=== PATIENT | male | born 1980 | race Caucasian/White ===

== ENCOUNTER 2018-08-21 23:50 | Inpatient (IN) | payer BC ==
[~2018-08-21] VITALS: Ht 188 cm; Wt 79.4 kg
[~2018-08-21 23:50] MED LIST: GLIP-116 PO; METF-372 PO
[2018-08-22] MEDS ORDERED: SODIUM CHLORIDE 0.9% 1,000 ML IVB ONE (00:11)
[2018-08-22] MEDS ORDERED: InsuLIN REG 1unit/0.01ml Soln (100units/ml) IV ONE (00:15)
[2018-08-22 00:47] LABS: Basophils # (auto) 0 uL; Basophils % (auto) 0.2 % (0.0-2.0); Eosinophils # (auto) 0 uL; Hematocrit 55.1 % (41.0-53.0); Hemoglobin 18.1 g/dL (13.5-17.5); Lymphocytes # (auto) 0.6 uL; Lymphocytes % (auto) 2.7 % (10.0-50.0); Mean Corpuscular Hemoglobin 33.3 pg (28.0-32.0); Mean Corpuscular Hgb Conc. 32.8 g/dL (32.0-36.0); Mean Corpuscular Volume 101.3 fL (80.0-100.0); Monocytes # (auto) 1.7 uL; Monocytes % (auto) 8.3 % (0.0-12.0); Neutrophils # (auto) 18.5 uL; Neutrophils % (auto) 88.8 % (37.0-80.0); Platelet Count (auto) 416 10^3/uL (140-450); Red Blood Cells 5.44 10^6/uL (4.5-5.90); Red Cell Distribution Width 11.8 % (11.8-14.3); White Blood Cell 20.8 10^3/uL (4.4-10.8)
[2018-08-22 01:07] LABS: Albumin 3.9 g/dL (3.4-5.0); Calcium 8.3 mg/dL (8.5-10.1); Potassium 5.3 mmol/L (3.5-5.1)
[2018-08-22 01:09] LABS: Bilirubin, Total 2.2 mg/dL (0.2-1.0); Total Protein 8.2 g/dL (6.4-8.2)
[2018-08-22 01:12] LABS: BUN/Creatinine Ratio 26.8; Lactic Acid w/Reflex 3.2 mmol/L (0.4-2.0)
[2018-08-22] MEDS ORDERED: InsuLIN R (HUMAN) 100 UNITS in SODIUM CHL 0.9% 99 ML IV SCH ×5 (01:16→15:46)
[2018-08-22] MEDS ORDERED: SODIUM CHLORIDE 0.9% 1,000 ML IV ONE (01:30)
[2018-08-22] MEDS ORDERED: DEXTROSE (50%) 50ML SYRG IV PRN ×3 (01:30→18:00)
[2018-08-22] MEDS ORDERED: InsuLIN REG 1unit/0.01ml Soln (100units/ml) ONE (02:50)
[2018-08-22] MEDS: ACCU-CHEK COMFORT CURVE STRIP VI SCH ×13 (03:27→21:50)
[2018-08-22] MEDS: SODIUM CHLORIDE 0.9% 1,000 ML IV SCH ×6 (03:27→21:52)
[2018-08-22] MEDS ORDERED: ONDANSETRON HCL 4 MG/2 ML VIAL IV ONE (03:30)
[2018-08-22] MEDS ORDERED: VANCOMYCIN PER PHARMACY 0 MG IV SCH (03:30)
[2018-08-22] MEDS ORDERED: HYDROmorphone HCL 2 MG/ML VL IV ONE (03:30)
[2018-08-22] MEDS ORDERED: PANTOPRAZOLE 40 MG/10 ML VIAL IV ONE (03:30)
[2018-08-22] MEDS ORDERED: VANCOMYCIN 1GM/250ML 250 ML IV ONE (04:00)
[2018-08-22] MEDS ORDERED: SODIUM CHLORIDE 0.9% 1,000 ML IV SCH (07:28)
[2018-08-22] MEDS ORDERED: LIDOCAINE 1% HCL (LOCAL ANESTH.) INJ 20ML MDV ONE (07:46)
[2018-08-22] MEDS: cefTRIAXone 1GM/50ML D5W 50 ML IV SCH (08:00)
[2018-08-22] MEDS ORDERED: MORPHINE SULF INJ 2 MG/ML SYRINGE 1ML ONE (09:11)
[2018-08-22] MEDS: MORPHINE SULFATE 4 MG/ML SYR/VIAL IV PRN ×2 (09:19→17:29)
[2018-08-22 15:11] LABS: Basophils # (auto) 0 uL; Basophils % (auto) 0.1 % (0.0-2.0); Eosinophils # (auto) 0 uL; Hematocrit 45.1 % (41.0-53.0); Hemoglobin 15.9 g/dL (13.5-17.5); Lymphocytes # (auto) 0.5 uL; Lymphocytes % (auto) 4.3 % (10.0-50.0); Mean Corpuscular Hgb Conc. 35.2 g/dL (32.0-36.0); Mean Corpuscular Volume 96.5 fL (80.0-100.0); Monocytes % (auto) 9.3 % (0.0-12.0); Neutrophils % (auto) 86.3 % (37.0-80.0); Nucleated Red Blood Cells % 0.2 %; Platelet Count (auto) 274 10^3/uL (140-450); Red Blood Cells 4.68 10^6/uL (4.5-5.90); Red Cell Distribution Width 12.2 % (11.8-14.3); White Blood Cell 10.5 10^3/uL (4.4-10.8)
[2018-08-22 15:43] LABS: BUN/Creatinine Ratio 26.7; Potassium 3.9 mmol/L (3.5-5.1)
[2018-08-22] MEDS ORDERED: INSULIN LANTUS (GLARGINE) 1 /0.01ml (100units/ml) SC ONE (17:30)
[2018-08-22] MEDS: VANCOMYCIN 1GM/250ML 250 ML IV SCH (18:22)
[2018-08-22 20:30] VITALS: BP 153/88
[2018-08-22 21:45] LABS: BUN/Creatinine Ratio 21.6; Calcium 7.4 mg/dL (8.5-10.1); Potassium 3.8 mmol/L (3.5-5.1)
[2018-08-22] MEDS: InsuLIN REG 1unit/0.01ml Soln (100units/ml) SC SCH (21:51)
[2018-08-22] MEDS: INSULIN LANTUS (GLARGINE) 1 /0.01ml (100units/ml) SC SCH (21:51)
[2018-08-23] MEDS: MORPHINE SULFATE 4 MG/ML SYR/VIAL IV PRN (01:02)
[2018-08-23] MEDS: cefTRIAXone 1GM/50ML D5W 50 ML IV SCH (04:38)
[2018-08-23 05:00] VITALS: BP 158/97
[2018-08-23 06:16] LABS: Basophils # (auto) 0 uL; Eosinophils # (auto) 0 uL; Lymphocytes # (auto) 0.5 uL; Mean Corpuscular Hgb Conc. 36.2 g/dL (32.0-36.0); Monocytes # (auto) 0.6 uL; Monocytes % (auto) 7.8 % (0.0-12.0); Neutrophils # (auto) 7.1 uL
[2018-08-23 06:18] LABS: Basophils % (auto) 0.2 % (0.0-2.0); Hematocrit 39.6 % (41.0-53.0); Hemoglobin 14.3 g/dL (13.5-17.5); Lymphocytes % (auto) 6.3 % (10.0-50.0); Mean Corpuscular Hemoglobin 34.3 pg (28.0-32.0); Mean Corpuscular Volume 94.8 fL (80.0-100.0); Neutrophils % (auto) 85.7 % (37.0-80.0); Nucleated Red Blood Cells % 0.1 %; Platelet Count (auto) 211 10^3/uL (140-450); Red Blood Cells 4.18 10^6/uL (4.5-5.90); Red Cell Distribution Width 11.9 % (11.8-14.3); White Blood Cell 8.2 10^3/uL (4.4-10.8)
[2018-08-23] MEDS: ACCU-CHEK COMFORT CURVE STRIP VI SCH ×4 (06:30→21:38)
[2018-08-23] MEDS: VANCOMYCIN 1GM/250ML 250 ML IV SCH (06:30)
[2018-08-23] MEDS: InsuLIN REG 1unit/0.01ml Soln (100units/ml) SC SCH ×4 (06:37→21:39)
[2018-08-23] MEDS: SODIUM CHLORIDE 0.9% 1,000 ML IV SCH ×3 (06:37→21:40)
[2018-08-23 06:47] LABS: Anion Gap 15 (5-15); Blood Urea Nitrogen 12 mg/dL (7-18); Carbon Dioxide 12 mmol/L (21-32); Chloride 108 mmol/L (98-107); GFR African American 184 mL/min; GFR Non-African American 152 mL/min; Glucose 178 mg/dL (74-106); Potassium 3.6 mmol/L (3.5-5.1); Sodium 135 mmol/L (136-145)
[2018-08-23 06:48] LABS: Alanine Aminotransferase 18 U/L (16-61); Albumin 2.9 g/dL (3.4-5.0); Alkaline Phosphatase 97 U/L (45-117); Aspartate Aminotransferase 14 U/L (15-37); Bilirubin, Total 1.1 mg/dL (0.2-1.0); Calcium 8.1 mg/dL (8.5-10.1); Cholesterol 143 mg/dL (< 200); HDL Cholesterol 47 mg/dL (40-59); Total Protein 5.8 g/dL (6.4-8.2); Triglycerides 154 mg/dL (< 150)
[2018-08-23 06:49] LABS: LDL Cholesterol 84 mg/dL (< 100); Magnesium 2.4 mg/dL (1.6-2.6)
[2018-08-23 09:02] VITALS: BP 152/96
[2018-08-23] MEDS ORDERED: INSULIN LANTUS (GLARGINE) 1 /0.01ml (100units/ml) SC ONE (12:30)
[2018-08-23 13:00] VITALS: BP 153/93
[2018-08-23] MEDS: HYDROcodone-ACET 5/325MG TAB PO PRN ×3 (13:21→21:39)
[2018-08-23] MEDS ORDERED: VANCOMYCIN 1GM/250ML 250 ML IV SCH (14:00)
[2018-08-23 17:10] VITALS: BP 129/89
[2018-08-23] MEDS: INSULIN LANTUS (GLARGINE) 1 /0.01ml (100units/ml) SC SCH (21:39)
[2018-08-23 21:57] VITALS: BP 137/83
[2018-08-23 23:22] LABS: Urine Bacteria NONE SEEN /hpf (None Seen); Urine Blood Negative /uL (Negative); Urine Specific Gravity 1.005 (1.001-1.035); Urine WBC 1 /hpf (0 - 3)
[2018-08-24] MEDS: cefTRIAXone 1GM/50ML D5W 50 ML IV SCH (05:13)
[2018-08-24] MEDS: HYDROcodone-ACET 5/325MG TAB PO PRN ×2 (05:13→11:36)
[2018-08-24 05:38] VITALS: BP 149/88
[2018-08-24 06:13] LABS: Albumin 2.8 g/dL (3.4-5.0); Calcium 8.1 mg/dL (8.5-10.1)
[2018-08-24 06:17] LABS: BUN/Creatinine Ratio 13.6; Bilirubin, Total 1.2 mg/dL (0.2-1.0); Total Protein 5.8 g/dL (6.4-8.2)
[2018-08-24] MEDS: ACCU-CHEK COMFORT CURVE STRIP VI SCH ×3 (06:28→17:00)
[2018-08-24] MEDS: InsuLIN REG 1unit/0.01ml Soln (100units/ml) SC SCH ×3 (06:28→17:00)
[2018-08-24 09:00] VITALS: BP 151/92
[2018-08-24] MEDS ORDERED: ENOXAPARIN SOD 40 MG/0.4 ML SYRINGE SC SCH (10:00)
[2018-08-24] MEDS ORDERED: PANTOPRAZOLE 40 MG TAB PO SCH (10:00)
[2018-08-24] MEDS ORDERED: POTASSIUM CHL 20 Meq TABLET PO ONE (11:00)
[2018-08-24] MEDS ORDERED: SODIUM CHLORIDE 0.9% 1,000 ML IV SCH (11:00)
[2018-08-24 13:00] VITALS: BP 150/80
[2018-08-24 17:00] VITALS: BP 151/76
== END 2018-08-24 18:15 | disposition home or self-care (01) | DRG 637 ==
LOC: ER 23:52 → TELE 08-22 03:32 → TELE-CENTR 08-22 20:00
PROVIDERS: ADMIT Nurse Practitioner Family; ATTEND Internal Medicine
DX: E11.10 Type 2 diabetes mellitus with ketoacidosis without coma (principal); N17.0 Acute kidney failure with tubular necrosis; E11.21 Type 2 diabetes mellitus with diabetic nephropathy; D72.829 Elevated white blood cell count, unspecified; R00.0 Tachycardia, unspecified; E87.6 Hypokalemia; N18.9 Chronic kidney disease, unspecified; E11.22 Type 2 diabetes mellitus with diabetic chronic kidney disease; Z79.4 Long term (current) use of insulin
CPT/HCPCS: 36415; 36600; 71045; 80048; 80053; 80061; 80202; 81001; 82010; 82150; 82805; 82962; 83036; 83605; 83690; 83735; 83930; 85025; 87040; 87086; 93005; 94761; 96361; 96365; 96366; 96367; 96368; 99291; A6257; C9113; G0378; J0696; J1815; J2001; J2405

== ENCOUNTER 2019-01-11 10:04 | Inpatient (IN) | payer BC ==
[~2019-01-11] VITALS: Ht 188 cm; Wt 78.3 kg
[2019-01-11 10:48] LABS: Basophils # (auto) 0 uL; Basophils % (auto) 0.1 % (0.0-2.0); Eosinophils # (auto) 0 uL; Hemoglobin 17.5 g/dL (13.5-17.5); Lymphocytes # (auto) 0.6 uL; Lymphocytes % (auto) 4.9 % (10.0-50.0); Mean Corpuscular Hemoglobin 33.8 pg (28.0-32.0); Mean Corpuscular Hgb Conc. 35.7 g/dL (32.0-36.0); Mean Corpuscular Volume 94.6 fL (80.0-100.0); Monocytes # (auto) 0.3 uL; Monocytes % (auto) 2.4 % (0.0-12.0); Neutrophils # (auto) 11.2 uL; Neutrophils % (auto) 92.6 % (37.0-80.0); Nucleated Red Blood Cells % 0.3 %; Platelet Count (auto) 319 10^3/uL (140-450); Red Blood Cells 5.18 10^6/uL (4.5-5.90); Red Cell Distribution Width 12.1 % (11.8-14.3); White Blood Cell 12.1 10^3/uL (4.4-10.8)
[2019-01-11 11:02] LABS: Potassium 3.7 mmol/L (3.5-5.1)
[2019-01-11 11:07] LABS: Albumin 4.5 g/dL (3.4-5.0); BUN/Creatinine Ratio 16.9; Calcium 9.2 mg/dL (8.5-10.1); Total Protein 8.2 g/dL (6.4-8.2)
[2019-01-11 12:27] LABS: Urine Bacteria NONE SEEN /hpf (None Seen); Urine Blood Negative /uL (Negative); Urine Specific Gravity 1.024 (1.001-1.035); Urine WBC <1 /hpf (0 - 3)
[2019-01-11] MEDS ORDERED: SODIUM CHLORIDE 0.9% 1,000 ML IVB ONE (13:01)
[2019-01-11] MEDS ORDERED: SODIUM CHLORIDE 0.9% 1,000 ML IV SCH ×3 (13:01→19:01)
[2019-01-11] MEDS ORDERED: DEXTROSE (50%) 50ML SYRG IV PRN (13:15)
[2019-01-11] MEDS ORDERED: ONDANSETRON HCL 4 MG/2 ML VIAL IV ONE (13:15)
[2019-01-11] MEDS ORDERED: SODIUM CHLORIDE 0.9% 1,000 ML IV ONE (13:15)
[2019-01-11 13:44] LABS: INR 0.91 (0.9-1.15); Partial Thromboplastin Time 23.9 sec (23.78-33.04); Prothrombin Time 9.8 sec (9.27-12.13)
[2019-01-11 13:52] LABS: Magnesium 2.2 mg/dL (1.6-2.6)
[2019-01-11] MEDS: ACCU-CHEK COMFORT CURVE STRIP VI SCH ×7 (14:55→22:37)
[2019-01-11] MEDS: InsuLIN R (HUMAN) 100 UNITS in SODIUM CHL 0.9% 99 ML IV SCH (15:29)
[2019-01-11 15:31] LABS: BUN/Creatinine Ratio 19.6; Calcium 8.7 mg/dL (8.5-10.1); Potassium 4.1 mmol/L (3.5-5.1)
[2019-01-11] MEDS ORDERED: ONDANSETRON HCL 4 MG/2 ML VIAL IV PRN (16:30)
[2019-01-11] MEDS: PROMETHAZINE HCL 25 MG/ML 1ML IV PRN ×2 (16:57→23:31)
[2019-01-11] MEDS: SODIUM CHLORIDE 0.9% 1,000 ML IV SCH ×3 (17:00→22:16)
[2019-01-11] MEDS: SOD CHL 0.45% WITH 20MEQ KCL 1,000 ML IV SCH ×2 (17:22→23:10)
--- NOTE | 2019-01-11 18:25 | NUR ---
Received patient from ER. Patient A&Ox4. Patient on room air. IV right hand 20G running Insulin at 2unit/hr and NS w/K at 150ml/hr, IV patent, clean, dry, and intact. No S/S of SOB or distress noted. Patient on the monitor. Bed in the lowest position, side rails up x2, call light within reach. Admission packet to be done. Report to be given to assistant shift supervisor RN. Will continue to monitor.
[2019-01-11 18:37] VITALS: BP 142/92
[2019-01-11 19:46] LABS: Magnesium 2.2 mg/dL (1.6-2.6); Phosphorus 3.3 mg/dL (2.5-4.90)
--- NOTE | 2019-01-11 20:00 | NUR ---
Opening Shift Note Assumed care of patient. Patient's eyes closed, responded when called. Verbalizes that he is nauseated - propped up in bed, emesis bag with patient, will medicate with Zofran. Full assessment done - refer interventions. Temp 99.2 F, face flushed, does not feel cold/hot. Instructed on POC and to call for assist PRN, will continue to monitor for changes Q1hr and PRN. Addendum: 01/12/19 at 0015 by Lanny Parr RN ongoing IV NS bolus and IV Insulin at 2 units/hr
--- NOTE | 2019-01-11 20:30 | NUR ---
BMP NOT DONE CALLED LAB TO INCLUDE BMP IN THE BLOOD TEST DONE STEF AT 1850HRS LAB STAFF SAID SHE WILL DO IT Addendum: 01/11/19 at 2145 by Lanny Parr RN BMP RESULTS CAME OUT
[2019-01-11 21:33] LABS: BUN/Creatinine Ratio 17.5; Potassium 4.1 mmol/L (3.5-5.1)
[2019-01-11] MEDS: FAMOTIDINE (10MG/ML) 2ML VL IV SCH (21:50)
--- NOTE | 2019-01-11 22:00 | NUR ---
AT BEDSIDE PATIENT'S AT BEDSIDE. UPDATED OF PATIENT'S CONDITION. SHE BROUGHT IN THE IPAD AND PUT IN THE CABINET. Addendum: 01/11/19 at 2306 by Lanny Parr RN confirmed with ,patient's face was always been flushed
--- NOTE | 2019-01-11 22:25 | NUR ---
VOMITED PATIENT VOMITED ABOUT 100MLS ZOFRAN JUST GIVEN AROUND 8PM ADVISED PATIENT TO TAKE ICE CHIPS ONLY WILL GIVEN PHENERGAN IF NEEDED LATER
--- NOTE | 2019-01-11 23:15 | NUR ---
NAUSEA PATIENT REMAINED NAUSEATED - WILL MEDICATE WITH PHENERGAN
[2019-01-11 23:39] VITALS: BP 157/93
[2019-01-12] MEDS: ACCU-CHEK COMFORT CURVE STRIP VI SCH ×16 (00:07→23:02)
[2019-01-12 00:41] VITALS: BP 114/78
--- NOTE | 2019-01-12 03:00 | NUR ---
NAUSEA RE-ASSESS PATIENT SAID HE STILL HAS NAUSEA BUT LESSER NOW. PATIENT WAS ABLE TO REST FOR AWHILE. ADVISED PATIENT TO CALL FOR ASSISTANCE OR HE FEELS MORE NAUSEATED
[2019-01-12] MEDS: SOD CHL 0.45% WITH 20MEQ KCL 1,000 ML IV SCH ×3 (03:24→18:13)
[2019-01-12 04:00] VITALS: BP 149/83
[2019-01-12 06:21] LABS: Basophils # (auto) 0 uL; Eosinophils # (auto) 0 uL; Lymphocytes # (auto) 0.9 uL
[2019-01-12 06:24] LABS: Basophils % (auto) 0.1 % (0.0-2.0); Hematocrit 43.6 % (41.0-53.0); Hemoglobin 15.2 g/dL (13.5-17.5); Lymphocytes % (auto) 6.6 % (10.0-50.0); Mean Corpuscular Hemoglobin 33.9 pg (28.0-32.0); Mean Corpuscular Hgb Conc. 34.8 g/dL (32.0-36.0); Mean Corpuscular Volume 97.5 fL (80.0-100.0); Monocytes # (auto) 0.8 uL; Monocytes % (auto) 6.3 % (0.0-12.0); Neutrophils # (auto) 11.5 uL; Platelet Count (auto) 285 10^3/uL (140-450); Red Blood Cells 4.48 10^6/uL (4.5-5.90); White Blood Cell 13.3 10^3/uL (4.4-10.8)
[2019-01-12 06:42] LABS: Potassium 4.4 mmol/L (3.5-5.1)
[2019-01-12 06:47] LABS: BUN/Creatinine Ratio 12.2; Calcium 7.9 mg/dL (8.5-10.1); Magnesium 2.5 mg/dL (1.6-2.6); Phosphorus 1.8 mg/dL (2.5-4.90)
--- NOTE | 2019-01-12 07:00 | NUR ---
REPORT REPORT GIVEN TO FREDDY BRICEÑO
[2019-01-12 08:00] VITALS: BP 154/95
--- NOTE | 2019-01-12 08:00 | NUR ---
Opening Shift Note Assumed care of patient, Resting at this time. Patient A&Ox4. Patient on room air saturation at 98%. IV right hand running insulin at 1.5units/hr and .45 W/20meq K at 150ml/hr. IV patent, clean, dry, and intact. No S/S of distress/SOB or pain. Instructed on POC and to call for assist PRN. Bed in the lowest position, side rails up x2, call light within reach. Will continue to monitor.
--- NOTE | 2019-01-12 10:00 | NUR ---
Medication dosages, usages, and side effects explained to patient. Patient verbalized understanding. Will continue to monitor.
[2019-01-12] MEDS: FAMOTIDINE (10MG/ML) 2ML VL IV SCH ×2 (10:23→21:54)
[2019-01-12 10:26] LABS: Potassium 4.1 mmol/L (3.5-5.1)
[2019-01-12 10:32] LABS: Calcium 8.2 mg/dL (8.5-10.1)
--- NOTE | 2019-01-12 11:00 | NUR ---
Dr. Morris at bedside.
--- NOTE | 2019-01-12 11:11 | NUR ---
Family at bedside.
[2019-01-12 12:00] VITALS: BP 132/85
[2019-01-12] MEDS: InsuLIN R (HUMAN) 100 UNITS in SODIUM CHL 0.9% 99 ML IV SCH (13:01)
--- NOTE | 2019-01-12 13:30 | NUR ---
Patient resting at this time. Will continue to monitor.
[2019-01-12 14:09] LABS: BUN/Creatinine Ratio 9.5; Calcium 8.2 mg/dL (8.5-10.1); Potassium 3.9 mmol/L (3.5-5.1)
[2019-01-12] MEDS ORDERED: INSULIN LANTUS (GLARGINE) 1 /0.01ml (100units/ml) SC ONE (15:15)
--- NOTE | 2019-01-12 15:16 | NUR ---
Spoke with Dr. Morris about new lab results. New orders for 20units Lantus now. D/C insulin drip in 1 hour. Start ACCU checks Q1 hour for 3 hours, if patient has 3 consecutive blood sugars under 200 switch to ACCU checks Q4hr with a moderate sliding scale.
[2019-01-12 16:00] VITALS: BP 152/96
--- NOTE | 2019-01-12 18:09 | NUR ---
End of shift note Patient resting at this time. Patient A&Ox4. Patient now on Q4 ACCU checks with moderate sliding scale. 20 units Lantus daily. Patient on room air saturation at 98%. IV right hand running .45 W/20meq K at 150ml/hr. IV patent, clean, dry, and intact. No S/S of distress/SOB or pain. Bed locked and in the lowest position, side rails up x2, call light within reach. Will continue to monitor. Report to be given to shift supervisor rn RN.
[2019-01-12] MEDS: InsuLIN REG 1unit/0.01ml Soln (100units/ml) SC SCH ×2 (19:00→23:02)
[2019-01-12] MEDS ORDERED: DEXTROSE (50%) 50ML SYRG IV PRN (19:00)
--- NOTE | 2019-01-12 19:10 | NUR ---
OPENING SHIFT RECEIVED REPORT FROM DAY SHIFT RN. ASSUMED CARE OF PATIENT. PATIENT IN BED SLEEPING WITH NO SIGNS OR SYMPTOMS OF SOB, PAIN OR DISTRESS. CURRENTLY ON ROOM AIR, 02 SAT - 99%. UPDATED PATIENT ON PLAN OF CARE. BED IN LOWEST POSITION, SIDE RAILS UP X2, CALL LIGHT WITHIN REACH. WILL CONTINUE TO MONITOR.
[2019-01-12 20:02] VITALS: BP 133/88
--- NOTE | 2019-01-12 21:05 | NUR ---
(SAMANTHA) AT BEDSIDE.
[2019-01-13] VITALS: BP 153/85
--- NOTE | 2019-01-13 00:15 | NUR ---
ROUNDS PATIENT IN BED SLEEPING WITH NO SIGNS OR SYMPTOMS OF SOB, PAIN OR DISTRESS. CURRENTLY ON ROOM AIR, 02 SAT - 97%. BED IN LOWEST POSITION, SIDE RAILS UP X2, CALL LIGHT WITHIN REACH. WILL CONTINUE TO MONITOR.
[2019-01-13] MEDS: SOD CHL 0.45% WITH 20MEQ KCL 1,000 ML IV SCH (01:50)
[2019-01-13] MEDS: InsuLIN REG 1unit/0.01ml Soln (100units/ml) SC SCH ×2 (03:00→06:36)
[2019-01-13] MEDS: ACCU-CHEK COMFORT CURVE STRIP VI SCH ×2 (03:00→06:36)
--- NOTE | 2019-01-13 03:14 | NUR ---
SPOKE WITH HOSPITALIST AND RECEIVED ORDERS TO DOWN GRADE TO TELE.
[2019-01-13 04:00] VITALS: BP 145/70
--- NOTE | 2019-01-13 04:10 | NUR ---
MORNING CARE PATIENT REFUSED MORNING CARE AT THIS TIME. STATES, " I WANT TO DO IT LATER." WILL CONTINUE TO MONITOR.
--- NOTE | 2019-01-13 06:52 | NUR ---
END OF SHIFT PATIENT IN BED WITH NO SIGNS OR SYMPTOMS OF SOB, PAIN OR DISTRESS. CURRENTLY ON ROOM AIR, 02 SAT - 99%. UPDATED PATIENT ON PLAN OF CARE. WILL ENDORSE CARE TO DAY SHIFT RN.
[2019-01-13] MEDS ORDERED: INSULIN LANTUS (GLARGINE) 1 /0.01ml (100units/ml) SC SCH (07:00)
[2019-01-13 07:29] LABS: BUN/Creatinine Ratio 9.8; Calcium 8.2 mg/dL (8.5-10.1); Magnesium 2.1 mg/dL (1.6-2.6); Potassium 3.6 mmol/L (3.5-5.1)
[2019-01-13 07:44] LABS: Basophils # (auto) 0 uL; Basophils % (auto) 0.4 % (0.0-2.0); Eosinophils # (auto) 0 uL; Eosinophils % (auto) 0.2 % (0.0-7.0); Hemoglobin 14.7 g/dL (13.5-17.5); Lymphocytes % (auto) 13.2 % (10.0-50.0); Mean Corpuscular Hemoglobin 33.9 pg (28.0-32.0); Mean Corpuscular Hgb Conc. 35.8 g/dL (32.0-36.0); Mean Corpuscular Volume 94.5 fL (80.0-100.0); Monocytes # (auto) 0.5 uL; Monocytes % (auto) 6.8 % (0.0-12.0); Neutrophils # (auto) 5.9 uL; Neutrophils % (auto) 79.4 % (37.0-80.0); Nucleated Red Blood Cells % 0.1 %; Platelet Count (auto) 240 10^3/uL (140-450); Red Blood Cells 4.34 10^6/uL (4.5-5.90); Red Cell Distribution Width 12.1 % (11.8-14.3); White Blood Cell 7.4 10^3/uL (4.4-10.8)
[2019-01-13 07:45] VITALS: BP 134/81
--- NOTE | 2019-01-13 07:50 | NUR ---
Opening Shift Note Assumed care of patient @ 0730, awake and alert. No S/S of distress/SOB or pain. See interventions for complete assessment. Instructed on POC and to call for assist PRN, patient verbalized "I need to leave in 45 minutes, because I have a cruise scheduled today." This RN explained "As of now there's no orders to discharge you but I can page the doctor and get a discharge order." Patient replied "I have to go, it's just very important. If I don't get the discharge I'll just go against AMA." This RN explained to patient risk and consequences in leaving hospital and benefits of continued treatment and hospitalization. Paged Hospitalist, awaiting call back. Will continue to monitor patient.
--- NOTE | 2019-01-13 08:20 | NUR ---
Re-paged hospitalist, awaiting call back
--- NOTE | 2019-01-13 08:41 | NUR ---
Received call from patient's Nani inquiring regarding patient's A-Gap this morning, informed of patient's A-Gap of 10 and updated on POC. Nani states " I'm on my way to pick him up, he'll just gonna go AMA. We can't miss this cruise, I paid a lot for this and I'm so mad at him for getting sick." This RN explained to the risks and consequences involve in leaving AMA and benefits of continued treatment and hospitalization. Nani states "Ill watch him and make sure he doesn't drink."
--- NOTE | 2019-01-13 09:04 | NUR ---
IV removal Patient leaving AMA, IV on RT hand discontinued with sterile technique, catheter fully intact. Pressure dressing applied to site. Patient tolerated procedure well.
--- NOTE | 2019-01-13 09:11 | NUR ---
AMA Note ROSETTA HURT states they want to leave the hospital Against Medical Advice (AMA). Patient encouraged to stay for further treatment/stabilization. Paged hospitalist 2x to notify of patient's wishes, no call back. hearing therapist Robin informed. Patient advised of the risks and benefits of leaving AMA. Patient verbalized understanding. Patient encouraged to return to the ER if symptoms do not improve or worsen.
== END 2019-01-13 09:36 | disposition left against medical advice (07) | DRG 638 ==
LOC: ER 10:04 → OVERFLOW 16:34 → DOU IN ICU 18:27
PROVIDERS: ADMIT Nurse Practitioner Acute Care; ATTEND Internal Medicine
DX: E11.10 Type 2 diabetes mellitus with ketoacidosis without coma (principal); R65.10 Systemic inflammatory response syndrome (SIRS) of non-infectious origin without acute organ dysfunction; D72.829 Elevated white blood cell count, unspecified; E86.0 Dehydration; Z79.4 Long term (current) use of insulin; R00.0 Tachycardia, unspecified
CPT/HCPCS: 36415; 36600; 71046; 80048; 80053; 81001; 82150; 82805; 82962; 83036; 83735; 84100; 85025; 85610; 85730; 87081; 93005; 94761; 96361; 96374; 96375; G0378; J1815; J2405; J3490

== ENCOUNTER 2023-12-25 13:55 | Inpatient (IN) | payer BC, OTHER ==
[~2023-12-25] VITALS: Ht 195.6 cm; Wt 85.3 kg
[~2023-12-25 13:55] MED LIST changes: -GLIP-116 PO; +GLIP10TA9 PO
[2023-12-25 14:13] LABS: Urine Bacteria None Seen /hpf (None Seen)
[2023-12-25 14:28] LABS: Urine Blood TRACE /uL (Negative); Urine Clarity Clear (Clear); Urine Color Light-Yellow (Yellow); Urine Mucus FEW (None Seen); Urine Protein, UAD 1+ (Negative); Urine Specific Gravity 1.029 (1.001-1.035); Urine Urobilinogen 2 mg/dL (Negative); Urine WBC 1 /hpf (0 - 3); Urine pH 5.5 (5.0-9.0)
[2023-12-25] MEDS: LACTATED RINGER'S 2,000 ML IV ONE (14:32)
[2023-12-25] MEDS: ONDANSETRON HCL 4 MG/2 ML VIAL IV ONE (14:41)
[2023-12-25 14:50] LABS: Basophils # (auto) 0.1 10 ^3/uL (0-0.2); Eosinophils # (auto) 0 10 ^3/uL (0-0.8); Hemoglobin 19.9 g/dL (13.5-17.5); Monocytes # (auto) 1.5 10 ^3/uL (0-1.3); Neutrophils # (auto) 15.1 10 ^3/uL (1.6-8.6); Neutrophils % (auto) 85.7 % (37.0-80.0); Red Cell Distribution Width 11.5 % (11.8-14.3); White Blood Cell 17.6 10^3/uL (4.4-10.8)
[2023-12-25 14:51] LABS: Basophils % (auto) 0.3 % (0.0-2.0); Eosinophils % (auto) 0.1 % (0.0-7.0); Lymphocytes % (auto) 5.6 % (10.0-50.0); Mean Corpuscular Hemoglobin 33.9 pg (28.0-32.0); Mean Corpuscular Hgb Conc. 34.4 g/dL (32.0-36.0); Mean Corpuscular Volume 98.4 fL (80.0-100.0); Monocytes % (auto) 8.3 % (0.0-12.0); Nucleated Red Blood Cells % 0.2 %; Red Blood Cells 5.88 10^6/uL (4.5-5.90)
[2023-12-25 14:55] LABS: Hematocrit 57.9 % (41.0-53.0)
[2023-12-25 15:09] LABS: Large Platelets FEW; Platelet Estimate Increased
[2023-12-25 15:25] LABS: Alanine Aminotransferase 21 U/L (7-40); Albumin 4.8 g/dL (3.2-4.8); Alkaline Phosphatase 163 U/L (46-116); Anion Gap 21.00001 (5-15); Aspartate Aminotransferase 19 U/L (13-40); BUN/Creatinine Ratio 22.9 (10.0-20.0); Bilirubin, Total 1.4 mg/dL (0.2-1.0); Blood Urea Nitrogen 36 mg/dL (9-23); Chloride 92 mmol/L (98-107); Creatine Kinase IFCC 53 U/L (46-171); Glucose 396 mg/dL (74-106); Magnesium 2.3 mg/dL (1.6-2.6); Sodium 123 mmol/L (136-145); Total Protein 7.3 g/dL (5.7-8.2)
[2023-12-25 15:39] LABS: Carbon Dioxide < 10 mmol/L (20-30)
[2023-12-25] MEDS ORDERED: DEXTROSE (50%) 50ML SYRG IV PRN (15:45)
[2023-12-25] MEDS: InsuLIN REG 1unit/0.01ml Soln (100units/ml) IV ONE (15:45)
[2023-12-25] MEDS: INSULIN DRIP 100 UNIT/100ML 100 ML IV SCH (15:45)
[2023-12-25] MEDS: SODIUM CHLORIDE 0.9% 1,000 ML IV SCH ×3 (15:45→22:05)
[2023-12-25 15:58] VITALS: PULSE 122; RESP 22; O2SAT 96
[2023-12-25] MEDS ORDERED: DOCUSATE SOD 100 MG CAP PO PRN (16:00)
[2023-12-25] MEDS ORDERED: ACETAMINOPHEN 325 MG TAB PO PRN (16:00)
[2023-12-25] MEDS: SODIUM BICARB 50mEq/50ml Vial 150 ML in D5W 5% 1,000 ML IV ONE (16:15)
[2023-12-25 16:33] LABS: Creatinine, Urine 54.97 mg/dL (30.0-125.0)
[2023-12-25] MEDS: SODIUM BICARB 8.4% 50Meq/50ml SYR Vial IV ONE ×2 (16:33→17:15)
[2023-12-25] MEDS: LACTATED RINGER'S 1,000 ML IV ONE (16:33)
[2023-12-25] MEDS: ACCU-CHEK COMFORT CURVE STRIP VI SCH (16:33)
[2023-12-25 16:36] LABS: Chloride 95 mmol/L (98-107); Sodium 124 mmol/L (136-145)
[2023-12-25 16:37] LABS: Anion Gap 19.00001 (5-15)
[2023-12-25 16:38] LABS: Calcium 9.3 mg/dL (8.7-10.4)
[2023-12-25 16:42] LABS: BUN/Creatinine Ratio 19.1 (10.0-20.0)
[2023-12-25 16:47] LABS: Blood Urea Nitrogen 25 mg/dL (9-23)
[2023-12-25 17:06] LABS: Carbon Dioxide < 10 mmol/L (20-30); Potassium 5.9 mmol/L (3.5-5.1)
[2023-12-25 17:07] LABS: Glucose 403 mg/dL (74-106)
[2023-12-25] MEDS: ONDANSETRON HCL 4 MG/2 ML VIAL IV PRN (17:13)
[2023-12-25] MEDS: METOCLOPRAMIDE HCL 5MG/ml INJ 2ml VIAL IV PRN (17:14)
[2023-12-25] MEDS: MORPHINE SULFATE INJ 2 MG/ml SYRG IV PRN (17:14)
[2023-12-25 19:30] VITALS: PULSE 122; RESP 18; O2SAT 98
[2023-12-25 20:43] LABS: Anion Gap 17 (5-15); Carbon Dioxide 14 mmol/L (20-30); Chloride 99 mmol/L (98-107); Potassium 4.3 mmol/L (3.5-5.1)
[2023-12-25 20:44] LABS: Calcium 8.7 mg/dL (8.7-10.4)
[2023-12-25 20:49] LABS: Blood Urea Nitrogen 20 mg/dL (9-23)
[2023-12-25 20:57] LABS: Glucose 245 mg/dL (74-106); Sodium 130 mmol/L (136-145)
[2023-12-25] MEDS: SODIUM CHLOR 0.9% PF (SALINE LOCK) 10ML VIAL/SYR IV SCH (22:06)
[2023-12-26 00:43] LABS: Chloride 101 mmol/L (98-107); Potassium 3.4 mmol/L (3.5-5.1); Sodium 132 mmol/L (136-145)
[2023-12-26 00:44] LABS: Anion Gap 11 (5-15); Calcium 8.4 mg/dL (8.7-10.4); Carbon Dioxide 20 mmol/L (20-30)
[2023-12-26 00:49] LABS: BUN/Creatinine Ratio 18.1 (10.0-20.0); Blood Urea Nitrogen 17 mg/dL (9-23); Glucose 188 mg/dL (74-106)
[2023-12-26 04:57] LABS: Chloride 100 mmol/L (98-107); Potassium 3.3 mmol/L (3.5-5.1); Sodium 133 mmol/L (136-145)
[2023-12-26 04:58] LABS: Anion Gap 9 (5-15); Calcium 8.3 mg/dL (8.7-10.4); Carbon Dioxide 24 mmol/L (20-30)
[2023-12-26 05:03] LABS: Glucose 186 mg/dL (74-106)
[2023-12-26 05:04] LABS: BUN/Creatinine Ratio 16.7 (10.0-20.0); Blood Urea Nitrogen 14 mg/dL (9-23)
[2023-12-26] MEDS ORDERED: DEXTROSE (50%) 50ML SYRG IV PRN (06:00)
[2023-12-26] MEDS: ACCU-CHEK COMFORT CURVE STRIP VI SCH (06:15)
[2023-12-26] MEDS: CALCIUM GLUC 1,000mg/50ml-NS 50 ML IV ONE (06:24)
[2023-12-26] MEDS: InsuLIN REG 1unit/0.01ml Soln (100units/ml) SC SCH (06:28)
[2023-12-26] MEDS: POTASSIUM CHL 20 Meq TABLET PO ONE (06:40)
[2023-12-26 08:00] VITALS: PULSE 102; RESP 14; O2SAT 98
[2023-12-26] MEDS: D5W/SOD CHL 0.45% 1,000 ML IV SCH (08:15)
[2023-12-26] MEDS: PANTOPRAZOLE 40 MG/10 ML VIAL INJ IV SCH (10:03)
[2023-12-26] MEDS: ENOXAPARIN SOD 40 MG/0.4 ML SYRINGE SC SCH (10:04)
[2023-12-26] MEDS: HYDROcodone-ACET 5/325MG TAB PO PRN (12:09)
[2023-12-26] MEDS: INSULIN LANTUS (GLARGINE) 1 /0.01ml (100units/ml) SC ONE (15:20)
[2023-12-26 15:30] VITALS: BP 126/81; PULSE 106; RESP 18; TEMP 99.4; O2SAT 97
== END 2023-12-26 16:32 | disposition home or self-care (01) | DRG 420 ==
LOC: ER 13:59 → OVERFLOW 16:00
PROVIDERS: ADMIT Internal Medicine; ATTEND Internal Medicine
DX: E11.10 Type 2 diabetes mellitus with ketoacidosis without coma (principal); N17.0 Acute kidney failure with tubular necrosis; E87.1 Hypo-osmolality and hyponatremia; R00.0 Tachycardia, unspecified; I10 Essential (primary) hypertension; Z79.899 Other long term (current) drug therapy; Z79.84 Long term (current) use of oral hypoglycemic drugs
CPT/HCPCS: 36415; 36600; 71045; 76775; 80048; 80053; 81001; 82010; 82550; 82570; 82805; 82962; 83735; 83930; 83935; 84100; 84300; 85025; 96361; 96365; 96375; C9113; G0378; J1815; J2405